=== PATIENT | male | born 1965 | race Caucasian/White ===

== ENCOUNTER 2021-12-19 12:13 | Emergency (ER) | payer OTHER, SELFPAY ==
--- NOTE | ~2021-12-19 | XR_ITS ---
EXAMINATION: XR HAND, LEFT CLINICAL INFORMATION: , Injury with which appear. COMPARISON: None TECHNIQUE: PA, lateral, and oblique views of the left hand. FINDINGS: There is an oblique comminuted fracture distal phalanx first digit with soft tissue laceration and self amputation of pharyngeal tuft. No additional fracture seen. The soft tissues are normal. XR/XR hand LT min 3V IMPRESSION: Comminuted fracture distal phalanx and partial self amputation of phalangeal tuft third digit with soft tissue laceration
[2021-12-19 12:18] VITALS: BP 148/92; PULSE 77; RESP 18; TEMP 37.2; O2SAT 100; BMI 24.4
--- NOTE | 2021-12-19 15:19 | ED.WOUNDLAC ---
HPI - Wound/Laceration General Chief Complaint: Wound/Laceration Stated Complaint: sent from deep cut on L thumb work inj Time Seen by Provider: 12/19/21 14:50 Source: patient Mode of arrival: ambulatory Limitations: no limitations History of Present Illness HPI narrative: 56 yo male right hand dominant with a PMH of hypertension, presents to the ER from [employer] [facility] for evaluation of a crush injury to his left thumb sustained today at work. 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 The patient is currently complaining pain and bleeding. The patient denies any blood denies, the reports he was recently placed on blood pressure medication. The patient does not know when his last tetanus was. Onset (ago): hour(s) (4) Location: other (Left Thumb) Extremity Location: left: hand (thumb) Place: work Patient tetanus UTD: No (Not sure) Context: accidental Associated symptoms: pain Treatments prior to arrival: bandage Related Data Previous Rx's Medication Instructions Recorded amoxicillin 875 mg-potassium 1 tab PO BID #20 tabs 12/19/21 clavulanate 125 mg tablet ibuprofen 600 mg tablet 600 mg PO Q8H PRN pain #14 tabs 12/19/21 oxycodone 5 mg tablet 5 mg PO Q6H PRN severe pain (scale 12/19/21 score 7-10) #10 tabs Allergies Allergy/AdvReac Type Severity Reaction Status Date / Time No Known Allergies Allergy Verified 12/19/21 12:17 Review of Systems Review of Systems: Constitutional: No Fever, No Chills ENT/Mouth: No sore throat Cardiovascular: No Chest Pain, No SOB, Respiratory: No Cough, No Sputum, No Wheezing, No dyspnea Musculoskeletal: No joint pain, No Myalgias, left thumb pain Skin: No Skin Lesions, No rash, tip of left missing Neuro: No Weakness, No Numbness, No Dizziness, No Headache PMFSH Social History Social History Advance Directives: No Advance Directives Information Provided: No Physical Exam Vital Signs: Vital Signs: Last Vital Signs Temp 98.9 F 12/19/21 12:18 Pulse 77 12/19/21 12:18 Resp 18 12/19/21 12:18 BP 148/92 H 12/19/21 12:18 Pulse Ox 100 12/19/21 12:18 O2 Del Method 12/19/21 12:18 BMI result Body Mass Index 24.4 Appearance: Alert. Oriented X3. No acute distress. Eyes: Pupils equal, round and reactive to light. ENT: Pharynx normal. Neck: Normal inspection. Neck supple. CVS: Normal heart rate and rhythm. Pulses normal. Respiratory: No respiratory distress. Breath sounds normal. Skin: Traumatic avulsion of the distal left thumb, with bleeding and partial amputation including the nail bed, oozing blood centrally. no visible bone. normal flexion and extension of the thumb joint and MCP. normal finger to thumb opposition. Skin warm and dry. Normal skin color. Normal skin turgor. No rashes. Extremities: No lower extremity edema. Neuro: Oriented X 3. No motor deficit. No sensory deficit. Course Course Course Narrative: Patient is a 56-year-old male with past medical history of hypertension presenting with a crush injury of the left thumb done at work today, presenting with partial amputation. Likely an open fracture. Patient reports 10/10 pain, bleeding, and loss of the tip of the left thumb. Plan: - tetanus - pain management: Tylenol, ibuprofen, oxycodone - x-ray of the hand - Augmentin Reevaluation(s) Reevaluation #1: XR with communited fx distal phalanx. Bleeding stopped with surgicel after soaking in betadine/NS solution. Spoke with Dr. Rogers from Hand Surgery - recommend calling the office the morning to arrange close follow up, PO abx and pain control. If patient cannot be seen in the office tomorrow he will come back to the ER for wound re-evaluation and dressing change. stable for d/c home. patient agrees with plan. MDM - Wound/Laceration Imaging Data Hand X-ray : Radiologist's impression: FINDINGS: There is an oblique comminuted fracture distal phalanx first digit with soft tissue laceration and self amputation of pharyngeal tuft. No additional fracture seen. The soft tissues are normal. XR/XR hand LT min 3V IMPRESSION: Comminuted fracture distal phalanx and partial self amputation of phalangeal tuft <del>third</del> first digit with soft tissue laceration. Discharge Plan Discharge Clinical Impression: Open fracture of left thumb, Partial traumatic transphalangeal amputation of left thumb Patient Disposition: Home, Self-Care Instructions: Thumb Fracture (ED) Additional Instructions: Your x-ray today showed Comminuted fracture distal phalanx and partial self amputation of phalangeal tuft It is important that you follow with the Hand Specialist. Call them 1st thing in the morning. If you cannot get an appointment tomorrow for evaluation, recommend coming back to the ER for wound re-evaluation and dressing change. Take the prescribed antibiotics to help prevent infection You will need to change the dressing daily Take the prescribed Oxycodone as directed for severe pain - do not drive after taking this medication Recommend Tylenol 975 mg every 6 hours around the clock. Elevate your hand when possible. If you develop new or worsening symptoms call 911 or come back to the ER for further evaluation. Prescriptions: New amoxicillin-pot clavulanate 875-125 mg tablet 1 tab PO BID Qty: 20 0RF oxycodone 5 mg tablet 5 mg PO Q6H PRN (Reason: severe pain (scale score 7-10)) Qty: 10 0RF Rx Instructions: Partial Fill upon patient request. ibuprofen 600 mg tablet 600 mg PO Q8H PRN (Reason: pain) Qty: 14 0RF [place] [facility] [place] Group] Interventions: ED Discharge Assessment Last Done: 12/19/21 17:09 Discharge Date/Time: 12/19/21 17:12
[2021-12-19] MEDS: Ibuprofen 600 MG TABLET PO (15:25)
[2021-12-19] MEDS: Amoxicillin/Potassium Clav 875 MG TABLET PO (15:26)
[2021-12-19] MEDS: Acetaminophen 325 MG TABLET 975 MG PO (15:26)
[2021-12-19] MEDS: Diphth,Pertus(ACell),Tet Adult 0.5 ML SYRINGE IM (16:23)
== END 2021-12-19 17:12 | disposition home or self-care (01) ==
PROVIDERS: Emergency Provider Emergency Medicine; PCP Internal Medicine
DX: S62.522B Displaced fracture of distal phalanx of left thumb, initial encounter for open fracture (principal); S68.522A Partial traumatic transphalangeal amputation of left thumb, initial encounter; W23.1XXA Caught, crushed, jammed, or pinched between stationary objects, initial encounter; Y93.89 Activity, other specified; Y92.410 Unspecified street and highway as the place of occurrence of the external cause; Y99.0 Civilian activity done for income or pay
CPT/HCPCS: 73130; 90471; 90715; 99283; 99284

== ENCOUNTER 2021-12-20 10:52 | Emergency (ER) | payer OTHER, BC, SELFPAY ==
[2021-12-20 11:08] VITALS: BP 138/85; PULSE 77; RESP 18; TEMP 36.7; O2SAT 95; BMI 24.4
--- NOTE | 2021-12-20 11:31 | ED_ITS ---
HPI - Recheck/Abnormal Lab/Rx General Chief Complaint: General Medical Stated Complaint: bandage change Time Seen by Provider: 12/20/21 11:16 Source: patient Mode of arrival: ambulatory Limitations: no limitations History of Present Illness HPI narrative: Patient is a 56-year-old male with a PMH hypertension presenting for a dressing change for his left thumb. The patient was seen yesterday in the [facility] s/p crush injury at work. Patient was placed on oral antibiotics and given pain medication (oxycodone, ibuprofen). Patient denies any signs of infection, reports pain is controlled with medications. Patient was given a tetanus shot yesterday. Patient is not on any blood thinners. MD complaint: wound re-check Initial visit (ago): day(s) (1) Initial visit for: other (Crush wound) Returns today for: wound recheck, needs work/school note and other (Dressing change) Symptoms since prior visit: no new symptoms Context: other (Follow-up with hand surgeon on Thursday) Associated symptoms: none Treatments prior to arrival: given antibiotics on (12/19/2021) and given pain meds on (12/19/2021) Related Data Previous Rx's Medication Instructions Recorded amoxicillin 875 mg-potassium 1 tab PO BID #20 tabs 12/19/21 clavulanate 125 mg tablet ibuprofen 600 mg tablet 600 mg PO Q8H PRN pain #14 tabs 12/19/21 oxycodone 5 mg tablet 5 mg PO Q6H PRN severe pain (scale 12/19/21 score 7-10) #10 tabs Allergies Allergy/AdvReac Type Severity Reaction Status Date / Time No Known Allergies Allergy Verified 12/20/21 11:08 Review of Systems Review of Systems: Constitutional : No Fever, No Chills, Cardiovascular : No Chest Pain, No SOB Respiratory : No Dyspnea Gastrointestinal : No abdominal pain Musculoskeletal : No Joint Swelling Skin : positive healing avulsion on left thumb, No Foreign bodies, No rash, No surrounding erythema Neuro : No Weakness, No Numbness/tingling Yes all other systems are reviewed and are negative [facility] Past Medical History Attestation statement: The following information was validated with the patient. Source: old records reviewed and nursing notes reviewed Social History Social History Advance Directives: No Advance Directives Information Provided: No Physical Exam Vital Signs: Vital Signs: Last Vital Signs Temp 98.0 F 12/20/21 11:08 Pulse 77 12/20/21 11:08 Resp 18 12/20/21 11:08 BP 138/85 12/20/21 11:08 Pulse Ox 95 12/20/21 11:08 O2 Del Method 12/20/21 11:08 BMI result Body Mass Index 24.4 vital signs have been reviewed as normal and appeared to be correct. Blood pressure normal Heart rate normal. Respiration rate normal. Temperature normal. Oxygen saturation normal. Appearance: Alert. Oriented X3. No acute distress. Head: Normal external exam. Normocephalic. Atraumatic. Eyes: PERRLA. Conjunctiva and sclera normal. Eyelids normal. ENT: Pharynx normal. Moist mucous membranes. Neck: Normal inspection. Neck supple. FROM. CVS: Normal heart rate and rhythm. Respiratory: No respiratory distress. Painless inspiration. Skin: Skin warm and dry. Normal skin color. Normal skin turgor. Healing partial amputation of the left thumb noted, no fingernail noted. No other rashes/lesions/lacerations noted. Extremities: Extremities exhibit normal range of motion. Extremities nontender. Neuro: Oriented X 3. No motor deficit. No sensory deficit. Reflexes normal. Normal steady gait. No focal neuro deficits noted. Vascular: +2 radial pulses. Normal cap refill. No cyanosis noted to upper extremity nails and lower extremity toes nails. Course Course Course Narrative: 11:30 - 56-year-old male presents for a wound dressing. He presented yesterday after a crush injury to his left thumb. Dressing was changed. Xeroform was applied directly to the partial amputation. Patient's thumb was dressed a splint was applied and patient's wrist and thumb were wrapped with Gordy bandage. MDM - Recheck/Abnormal Lab/Rx Medical Records Attestation: I reviewed the patient's medical records. Discharge Plan Discharge Clinical Impression: Encounter for wound re-check Patient Disposition: Home, Self-Care Instructions: Crush Injury (ED) Additional Instructions: You were seen in the emergency department today for a wound dressing change. Your dressing can be changed on Thursday. Please follow-up with wound care clinic and with the hand surgeon Dr. Blanca Rogers. Please look out for signs of infection: Warmth of extremity, red streaking, fever, discharge. Please look out for signs of compartment syndrome. This includes extremity pain, and inability to move the digit. Please return to the emergency department or, home on if her symptoms worsen or change. Prescriptions: No Action amoxicillin-pot clavulanate 875-125 mg tablet 1 tab PO BID Qty: 20 0RF oxycodone 5 mg tablet 5 mg PO Q6H PRN (Reason: severe pain (scale score 7-10)) Qty: 10 0RF Rx Instructions: Partial Fill upon patient request. ibuprofen 600 mg tablet 600 mg PO Q8H PRN (Reason: pain) Qty: 14 0RF Referrals: [facility] [place] [facility] [Provider Group] (Call to make a follow up appointment ) Blanca Rogers MD [Physician] - (Call to make a follow up appointment ) Stand Alone Forms: Work/School Release Discharge Date/Time: 12/20/21 11:46 Print Language: Greek
== END 2021-12-20 11:46 | disposition home or self-care (01) ==
PROVIDERS: Emergency Provider Student in an Organized Health Care Education/Training Program; PCP Internal Medicine
DX: Z48.00 Encounter for change or removal of nonsurgical wound dressing (principal); Z79.899 Other long term (current) drug therapy
CPT/HCPCS: 99281; 99284

== ENCOUNTER → 2021-12-23 10:55 | Outpatient (BNVA) | payer OTHER, SELFPAY | PROVIDERS: PCP Internal Medicine; Visit Provider Internal Medicine | DX: S61.012A Laceration without foreign body of left thumb without damage to nail, initial encounter (principal); W31.89XA Contact with other specified machinery, initial encounter | CPT/HCPCS: 99203 ==

== ENCOUNTER → 2021-12-25 08:04 | Outpatient (BNVA) | payer OTHER, SELFPAY | PROVIDERS: PCP Internal Medicine; Visit Provider Orthopaedic Surgery | DX: S68.522A Partial traumatic transphalangeal amputation of left thumb, initial encounter (principal); S69.92XA Unspecified injury of left wrist, hand and finger(s), initial encounter | CPT/HCPCS: 99202 ==

== ENCOUNTER 2022-01-02 05:51 | Day surgery (SDC) | payer OTHER, SELFPAY ==
--- NOTE | 2022-01-01 10:04 | P.CONAN_ITS ---
Documented by User: Giulia Mo NP 01/01/22 10:07 HPI - Anesthesia Eval Consult details Narrative: 56yo M for Left I&D Hand of thumb, Amputation Revision possible nail removal of matrices [facility] Active Problems Active Problems: All Active Problems (Updated 12/25/21 @ 09:45 by Blanca Rogers MD) Injury of nail bed of finger of left hand (Acute) Partial traumatic amputation of left thumb through phalanx (Acute) Past Medical History Medical History High blood cholesterol Hypertension Social History Social History (Updated 12/25/21 @ 08:22 by Iliana Reece Mary) Patient Tobacco Use Status: Former Tobacco user Quit Date: years ago Tobacco use type: Smokeless Tobacco Use of substances other than those prescribed or required for medical reasons: No Are you DNR?: No Advance Directives: No Advance Directives Information Provided: Yes Current occupational status: employed Current occupation: [employer], [employer] Meds Allergies Allergy/AdvReac Type Severity Reaction Status Date / Time No Known Allergies Allergy Verified 12/25/21 08:20 Home Medications Medication Instructions Recorded Confirmed Last Taken Type amlodipine 5 mg tablet 5 mg PO DAILY 12/25/21 Unknown History atorvastatin 20 mg tablet 20 mg PO DAILY 12/25/21 Unknown History losartan 50 mg-hydrochlorothiazide 1 tab PO DAILY 12/25/21 Unknown History 12.5 mg tablet Exam Exam Date and Time: January 01, 2022 1004 Assessment and Plan Assessment Anesthesia Assessment: Chart Reviewed Documented by User: Ezequiel Up MD 01/02/22 18:12 [facility] Past Medical History Medical History High blood cholesterol Hypertension Functional capacity: independent ambulation Family History Family history of problems with anesthesia: No Surgical History History of Problems with Anesthesia: No Social History Social History (Updated 10/19/22 @ 08:22 by RUCHI Maharaj Patient Tobacco Use Status: Former Tobacco user Quit Date: years ago Tobacco use type: Smokeless Tobacco Use of substances other than those prescribed or required for medical reasons: No Are you DNR?: No Advance Directives: No Advance Directives Information Provided: Yes Current occupational status: employed Current occupation: [employer], [employer] Meds Allergies Allergy/AdvReac Type Severity Reaction Status Date / Time No Known Allergies Allergy Verified 12/25/21 08:20 Home Medications Medication Instructions Recorded Confirmed Last Taken Type amlodipine 5 mg tablet 5 mg PO DAILY 12/25/21 Unknown History atorvastatin 20 mg tablet 20 mg PO DAILY 12/25/21 Unknown History losartan 50 mg-hydrochlorothiazide 1 tab PO DAILY 12/25/21 Unknown History 12.5 mg tablet Exam Airway Mallampati Class: III TM Dist: >3cm Neck ROM: Full Loose/Missing/Broken Teeth: Yes Heart: S1, S2 Lungs: b/l breath sounds Assessment and Plan Assessment Anesthesia Assessment: Anesthesia Plan Discussed Final Anesthetic Review Family History of Problems with Anesthesia: No History of Problems with Anesthesia: No NPO: Yes ASA Class: II Final Preanesthetic Review: Meds/Allgs Chart Reviewed, Consent Obtained/Reviewed and Anes Risks/Benef Reviewed Patient Risk: Intermediate Procedure Risk: Intermediate Anesthetic Plan Anesthetic Plan: GA Disposition: Standard PACU
[2022-01-02] VITALS (8 sets, daily range): BP systolic 128–139; BP diastolic 75–87; PULSE 75–89; RESP 13–18; TEMP 36.7; O2SAT 95–98; BMI 25.1
[2022-01-02] MEDS: Lactated Ringers 1,000 ML 100 ML IVCONT (06:44)
--- NOTE | 2022-01-02 07:53 | MHC.SHP ---
Pre-Procedural Eval Section A Date of Service: 01/02/22 The patient is an INPATIENT: No Changes since office visit: No Cold of Flu in the past 2 weeks, No New Medical Problems, No Changes in Medication and No Patient answered all questions The History & Physical has been completed within 30 days and I have reviewed it.: Yes Section B Chief Complaint: Partial traumatic metacarpophalangeal amputation o Allergies: Allergies Allergy/AdvReac Type Severity Reaction Status Date / Time No Known Allergies Allergy Verified 12/25/21 08:20 Plan I have reviewed the history and physical and performed a pertinent physical examination on my patient. No changes have occurred unless specified.
--- NOTE | 2022-01-02 07:53 | W.PM.OPN ---
Operative Note Operative Note Date of Service: 01/02/22 Narrative: Operative Note Narrative: Preop diagnosis: 1. Left thumb distal phalanx level Amputation Postop diagnosis: Same Procedure: 1. left thumb distal phalanx level Revision amputation 2. left thumb distal phalanx I and D of open fracture Surgeon: Blanca Rogers MD Anesthesia: General Anesthesia Findings: the distal phalanx level amputation. I did need to trim a few mm off of the distal aspect of the sterile nail matrix, but I believe he will have enough underlying bone to support a reasonable nail. He also was making good granulation tissue at the tip of the finger. No evidence of infection. Implants: None Tourniquet time: Twenty-eight minutes EBL: 5.0 ml Specimen: none Drains: None Complications: None Disposition: Brought to the recovery room in stable condition Plan: Follow-up in 7-10 days for wound check Anticipate suture removal in 3 weeks Indications: The patient is 56 years old with partial amputation of the tip of his left thumb . The risks and benefits of operative treatment, including but not limited to risk of damage to blood vessels, nerves, tendons, infection, recurrence, persistent pain or numbness, incomplete resolution of preoperative symptoms, or need for further surgery were discussed with the patient and they wished to proceed with surgery. Procedure: Once consent was obtained patient was brought back to the operating suite and placed in the operating table in a supine position. . Perioperative antibiotics and anesthesia was administered by the anesthesia team. A tourniquet was applied to the proximal aspect of the left upper extremity and the limb was prepped and draped in a standard surgical fashion. The limb was elevated exsanguinated with Esmarch bandage and the tourniquet inflated to 250 mm of mercury for a total tourniquet time of 28 minutes. The amputation site was debrided of nonviable tissue. The end of the bone was debrided using a curette where necessary and also shortened using a rongeur . The end of the bone was remove the sharp edges as possible using a small rongeur. The ends of the digital nerves were shortened as indicated. The wound was then copiously irrigated with normal saline. the volar flap of tissues was somewhat longer on the radial aspect of the finger. I was able to bring that flap over the tip of the remaining distal phalanx for coverage with only a small amount of shortening the bone or the nail bed. The skin edges were then reapproximated using some 4-0 Prolene suture material. At this point the tourniquet was deflated and hemostasis obtained with a brief period of local pressure.. A digital block was performed using some 0.5% plain ropivacaine for postop pain control and a sterile dressing was applied. The patient appears to have tolerated the procedure well and with no complications. All digits were well vascularized conclusion of the case.
[2022-01-02] MEDS: Acetaminophen 325 MG TABLET 650 MG PO (09:39)
[2022-01-02] MEDS: oxyCODONE HCl Immed Release 5 MG TABLET PO (09:40)
== END 2022-01-02 10:39 | disposition home or self-care (01) ==
PROVIDERS: PCP Internal Medicine; Visit Provider Orthopaedic Surgery
PROC: (CPT 26236; principal; 2022-01-02 07:30)
PROC: (CPT 26236; 2022-01-02 07:30)
DX: S68.522A Partial traumatic transphalangeal amputation of left thumb, initial encounter (principal); S69.92XA Unspecified injury of left wrist, hand and finger(s), initial encounter; W31.89XA Contact with other specified machinery, initial encounter; Y93.89 Activity, other specified; Y92.89 Other specified places as the place of occurrence of the external cause; Y99.0 Civilian activity done for income or pay; I10 Essential (primary) hypertension; E78.00 Pure hypercholesterolemia, unspecified; Z79.899 Other long term (current) drug therapy; Z87.891 Personal history of nicotine dependence
CPT/HCPCS: 26236; 11012; J0690; J1100; J1170; J1885; J2250; J2405; J2795; J3010

== ENCOUNTER 2022-01-22 | Outpatient (REF) | payer OTHER, SELFPAY ==
--- NOTE | ~2022-01-22 | XR_ITS ---
EXAMINATION: XR HAND, LEFT CLINICAL INFORMATION: Pain left hand. COMPARISON: None TECHNIQUE: PA, lateral, and oblique views of the left hand. FINDINGS: There is mild loss of first carpometacarpal joint space. Minimal loss of PIP and DIP joints are noted without bony erosive changes. No osteopenia. No fracture or dislocation. No soft tissue swelling. XR/XR hand LT min 3V IMPRESSION: Mild degenerative changes first carpometacarpal joint space. Mild degenerative changes are seen in the PIP and DIP joints as well.
== END 2022-01-22 00:01 | disposition home or self-care (01) ==
LOC: HO.HOSX
PROVIDERS: Visit Provider Orthopaedic Surgery
DX: M79.642 Pain in left hand (principal)
CPT/HCPCS: 73130

== ENCOUNTER 2022-04-08 09:55 | Outpatient (REF) | payer OTHER, SELFPAY ==
--- NOTE | ~2022-04-08 | XR_ITS ---
EXAMINATION: XR HAND, LEFT CLINICAL INFORMATION: Pain in the left hand. COMPARISON: X-ray the left hand January 2022. TECHNIQUE: PA, lateral, and oblique views of the left hand. FINDINGS: First carpometacarpal joint there is advanced osteoarthritis of the joint with associated marginal osteophytes subchondral cystic changes and joint space narrowing. This is unchanged compared to prior. Possible minimal osteoarthritis of the DIP joints manifested by possible subtle subchondral cysts no joint space narrowing or marginal osteophytes. XR/XR hand LT min 3V IMPRESSION: 1. Advanced osteoarthritis of the first carpometacarpal joint unchanged compared with January 2022. 2. Possible minimal osteoarthritis of the DIP joints unchanged..
== END 2022-04-08 09:56 | disposition home or self-care (01) ==
LOC: HO.HOSX 09:55
PROVIDERS: Visit Provider Orthopaedic Surgery
DX: S68.522D Partial traumatic transphalangeal amputation of left thumb, subsequent encounter (principal); M79.642 Pain in left hand; X58.XXXD Exposure to other specified factors, subsequent encounter
CPT/HCPCS: 73130; 99212

== ENCOUNTER 2023-03-11 11:19 | Outpatient (AMB) | payer OTHER, SELFPAY ==
--- NOTE | 2023-03-11 11:29 | A.SPINEOV_ITS ---
Intake Intake Visit Reasons: Low back pain Intake Note: Mr. Patton is here today c/o low back pain. MRI done @ [place]. 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 He does report some very occasional intermittent low back pain but feels as though his legs are the primary concern. 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 He states that he felt a ?twinge? in his right anterior thigh, and from there on he had worsening symptoms which he now presents with today. When describing his numbness/tingling he states that it comes and goes intermittently between his left and right anterior thighs, transitioning between each thigh and the tops of his bilateral feet. He does not describe the symptoms as shooting but more so describes them as waxing/waning. He reports no bowel/bladder incontinence and no issues with urination or bowel movements. He has not yet attempted to go to physical therapy, care professional, acupuncture or utilize cortisone injections via physiatry / Pain Management. PMH: High blood pressure. Social hx: Patient does not smoke, reports no substance use. Medications: Losartan, atorvastatin. Allergies: NKDA Physical exam: The patient has 5/5 strength in his upper and lower extremities. Sensation is grossly intact. Reflexes are 2+ and intact. The patient ambulates well, rises from a seated position without difficulty. (-) Olivares's, (-) clonus, (-) straight leg raise bilaterally. Imaging review: MRI of the lumbar spine completed at [place] shows a very small posterior disc protrusion at L5-S1 which does not seem to be impinging the exiting nerves. Diffuse spondylosis of the lumbar spine also noted, with early s tage DDD at L5-S1. Impression: The patient is the 57-year-old male who comes in today with a chief complaint of numbness, tingling and general discomfort in his bilateral legs. He reports that his symptoms are predominantly in his right anterior thigh but also transition from left to right thigh in intermittently involved the tops of his bilateral feet. He has a little to no actual low back pain. He has no weakness. He has not attempted to utilize any other conservative measures thus far. His symptoms do not match the dermatomal distribution that would be expected for an impingement at L5-S1. He does seem to be fairly concerned with the numbness/tingling that he has in his anterior thigh particularly on the right side and inquired about a referral to Neurology for further workup. I will put this referral in for him. He was encouraged to continue follow-up with his primary care provider, and to discuss potential referral to Pain Management/Physical therapy if pain develops. Thank you for allowing us to care for your patient. The total time spent with this visit with this patient was 45 minutes reviewing history, physical exam, MRI imaging review, and implementation of treatment plan or further diagnostic testing Nick Rodrigues MD,PhD [facility] Orders: Referrals Neurology Referral R20.2 - Paresthesia of skin Coding Level of Care Code New Pt Level 4 (54020) Diagnoses Paresthesia of bilateral legs R20.2
== END 2023-03-11 12:44 | disposition home or self-care (01) ==
PROVIDERS: Referring Provider Physician Assistant; Visit Provider Physician Assistant
DX: R20.2 Paresthesia of skin (principal)
CPT/HCPCS: 99204

== ENCOUNTER → 2023-03-11 11:19 | Outpatient (BNVA) | payer OTHER, SELFPAY | PROVIDERS: Visit Provider Physician Assistant ==

== ENCOUNTER 2023-05-19 14:48 | Outpatient (AMB) | payer OTHER, SELFPAY ==
--- NOTE | 2023-05-19 15:02 | MHC.OFFVIS ---
Intake Vital Signs 05/19/23 15:11 Height 5 ft 10.5 in Weight 193 lb 6 oz BMI 27.4 BP 132/80 Blood Pressure Location Lt brachial Position Sitting Pulse 74 Pulse Source Pulse Oximeter Pulse Oximetry (%) 96 Oxygen Delivery Method Room Air Intake Visit Reasons: INP-Paresthesia of skin - CONF w/address Intake Note: Patient presents for Paresthesia of the skin. numbness upper right arm, numbness both legs calf area and toes. Allergies No Known Allergies Allergy (Verified 05/19/23 15:10) Medication List - Last Reconciled 05/19/23 by Hermann Carter CNP atorvastatin 20 mg PO DAILY cholecalciferol (vitamin D3) 25 mcg PO DAILY ibuprofen 600 mg PO Q8H PRN losartan-hydrochlorothiazide 50-12.5 mg 1 tab PO DAILY HPI HPI Comments History of Present Illness Details 58 y/o male patient presents for new in-person visit for evaluation of numbness and tingling of lower extremities. Pt reports lower extremities numbness and tingling, more right leg then left which started about 2 years ago. The numbness and tingling started right upper tight and then move to groin, and right upper extremities. Now he feels numbness, tingling on toes and calf. He feels more numbness and tingling when he rest, mostly in the evening, and when he wakes up. However, he does not feel the weird the tingling sensation when he walks or move around and it does not bother his sleep. He stopped biking and regular exercise two years ago, for his life situation and then he felt more numbness and tingling at that time. Now he restarted his regular, routine exercise and the weird tingling sensation has improved. He ride a bike three times a week, for [address] for living, and sit 12 hrs every day. When he gets up, he feels more numbness. Pt also reports low grade constant tinnitus. Denies shooting pain, and burning, just tingling. MRI of the lumbar spine completed at [facility] shows a very small posterior disc protrusion at L5-S1 which does not seem to be impinging the exiting nerves. Diffuse spondylosis of the lumbar spine also noted, with early stage DDD at L5-S1. [facility] Medical History High blood cholesterol Hypertension Social History Comment: medicated in PACU Patient Tobacco Use Status: Former Tobacco user Quit Date: years ago Tobacco use type: Smokeless Tobacco Current occupational status: employed Current occupation: [employer], rt hand Review of Systems Const All systems reviewed & are unremarkable except as noted in HPI and below Physical Exam Vital Signs: Last Vital Signs Pulse 74 05/19/23 15:11 BP 132/80 05/19/23 15:11 Pulse Ox 96 05/19/23 15:11 Oxygen Delivery Method Room Air 05/19/23 15:11 BMI result Body Mass Index 27.4 Const General: cooperative and healthy appearing Nutritional Appearance: overweight Orientation/consciousness: patient oriented x3 Neck Neck: Yes full ROM and Yes supple Resp Effort & Inspection: normal respiratory effort Neuro General: patient oriented x3, gait normal, moves all extremities and no focal motor deficits Cranial nerves: Yes CN's II-XII intact bilaterally Gait exam (Neuro): Normal gait present Motor exam (neuro): 5/5 motor strength present throughout Deep tendon reflexes (DTR's): Rt Biceps (C5, C6): 2+, Left biceps reflex intensity grade: 2+, Right brachioradialis reflex intensity grade: 2+, Left brachioradialis reflex intensity grade: 2+, Right patellar reflex intensity grade: 2+ and Left patellar reflex intensity grade: 2+ Assessment & Plan Assessment & Plan (1) Paresthesia of bilateral legs: Code(s): R20.2 - Paresthesia of skin (2) Numbness of upper extremity: Code(s): R20.0 - Anesthesia of skin Plan Pt was evaluated and discussed the plan of care with Dr. Billingsley. Advised patient to undergo EMG of upper and lower extremities. Will check labs for reversible causes of numbness and tingling. The symptoms more likely restless legs. Will check ferritin, too. Pt will call for worsening symptoms or further concerns. Orders: Orders TSH reflex Free T4 Today R20.0 - Anesthesia of skin, R20.2 - Paresthesia of skin NE electromyogram (EMG) Today R20.0 - Anesthesia of skin, R20.2 - Paresthesia of skin Vitamin D 25-OH (D2 and D3) Today R20.0 - Anesthesia of skin, R20.2 - Paresthesia of skin Ferritin Today R20.2 - Paresthesia of skin Coding Level of Care Code New Pt Level 4 (05176) Diagnoses Paresthesia of bilateral legs R20.2 Numbness of upper extremity R20.0
[2023-05-19 15:11] VITALS: BP 132/80; PULSE 74; O2SAT 96; BMI 27.4
== END 2023-05-19 15:57 | disposition home or self-care (01) ==
LOC: HO.HSMS 14:49
PROVIDERS: Visit Provider Nurse Practitioner Family
DX: R20.2 Paresthesia of skin (principal); R20.0 Anesthesia of skin
CPT/HCPCS: 99204

== ENCOUNTER → 2023-05-19 14:48 | Outpatient (BNVA) | payer OTHER, SELFPAY | PROVIDERS: Visit Provider Nurse Practitioner Family ==